=== PATIENT | male | born 1990 | race Caucasian/White ===

== ENCOUNTER 2024-02-19 13:47 | Outpatient (AMB) | payer OTHER, SELFPAY ==
--- NOTE | 2024-02-19 13:50 | MHC.PC.OV ---
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 Intake Note: New patient visit Insurance Specialist Required: No Allergies No Known Allergies Allergy (Verified 02/19/24 13:56) Tobacco use date assessed: 02/19/24 Dental Screening Dental Screen Date: 02/19/24 Did you have a dental visit in the last 12 months?: No Did you have a dental problem in the last 6 months where you did not have access to dental care?: No Was dental information given to patient?: Yes HPI HPI Comments History of Present Illness Details This is a 33-year-old male with a past medical history of depression with anxiety, ear infections, avoidant restrictive food intake disorder and obesity presenting to establish care and have a physical exam. Patient says it has been many years since he had a PCP. He sees a therapist for anxiety, depression and his food intake disorder. He is doing better. He got a dog. He has recently become more physically active and is trying to eat healthier. This has improved his mental health significantly. He plans to continue therapy, but he may switch providers. He will schedule eye and dental exams. He does not know the date of his last tetanus immunization. He suspects it is more than 10 years ago. It is administered today. Annual influenza vaccine was also recommended. ROS: Constitutional: No unexplained weight loss, fever, chills, fatigue or night sweats. Eyes: No vision changes, blurry vision, double vision, eye pain, eye redness, eye discharge. ENT: No hearing loss, sneezing, congestion, runny nose or sore throat. Respiratory: No shortness of breath, cough or sputum production. Cardiovascular: No chest pain, chest pressure or chest discomfort. No palpitations or pedal edema. Gastrointestinal: No anorexia, nausea, vomiting or diarrhea. No abdominal pain or blood in stool. Genitourinary: No dysuria, hematuria, urinary frequency. Denies testicular masses, swelling or pain. Neurologic: No headache, dizziness, syncope, unilateral weakness, ataxia, numbness or tingling in the extremities. Musculoskeletal: No joint swelling, redness or decreased range of motion. Hematologic/Lymphatics: No bleeding or bruising. No painful lymph nodes. Skin: No rash Endocrine: No cold or heat intolerance. No polyuria or polydipsia. Psychiatric: No SI/HI. Physical exam: Constitutional: Alert, in no distress. Head: Normocephalic. Eyes: Pupils are equal, round and reactive to light. Extraocular muscles intact. Ear, Nose and Throat: Canals clear. TMs normal. Normal nasal mucosa. No nasal discharge. No oral lesions. Neck: Supple, Full range of motion. No lymphadenopathy. No palpable thyroid masses. Respiratory: Clear to auscultation. Cardiovascular: S1 S2 regular. No murmurs. Gastrointestinal: Abdomen soft, non-tender, non-distended. Normal bowel sounds. No palpable masses. Genitourinary: Patient declined exam. Neurologic: No focal neurological deficits. Symmetric patellar reflexes. Moves all extremities spontaneously. Sensation intact bilaterally. Skin: No rashes or lesions. Musculoskeletal: No gross deformities. Normal range of motion. Extremities: Warm and well perfused. No clubbing, cyanosis or edema. 3+ peripheral pulses bilaterally. Psychiatric: Normal mood and affect [facility] Medical History (Updated 02/19/24 @ 14:27 by SAMARA De La Cruz) Avoidant/restrictive food intake disorder Depression with anxiety Ear infection Surgical History (Updated 02/19/24 @ 14:28 by SAMARA De La Cruz) History of appendectomy Family History (Updated 02/19/24 @ 14:31 by SAMARA De La Cruz) Paternal Grandmother Colon cancer Paternal Uncle Lung cancer Maternal Grandfather Coronary artery disease Mother Alcohol abuse Social History Housing: House Patient Tobacco Use Status: Former Tobacco user Cigarette Packs Per Day: 1.5 Years Smoked: 8 e-Cigarette/Vaping Use: Former Use Second Hand Smoke Exposure: No service: No Current occupational status: employed 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 1. Little interest or pleasure in doing things: several days 2. Feeling down, depressed, or hopeless: several days 3. Trouble falling or staying asleep, or sleeping too much: several days 4. Feeling tired or having little energy: several days 5. Poor appetite or overeating: nearly every day 6. Feeling bad about yourself - or that you are a failure or have let yourself or your family down: not at all 7. Trouble concentrating on things, such as reading the newspaper or watching television: several days 8. Moving or speaking so slowly that other people could have noticed. Or the opposite - being so fidgety or restless that you have been moving around a lot more than usual: several days 9. Thoughts that you would be better off or of hurting yourself in some way: not at all Total score: 9 Depression Screening Interpretation: Positive Depression Screening Follow-up: Existing condition and In treatment Depression Screening Done: Yes 33356 - PHQ-9 Billing: Yes Source: Developed by Drs. Kevan Serra, Shania Robertson, Cirilo Mitchell and colleagues, with an educational mack from [employer]. Thrive Questionnaire Date Thrive assessed: 02/19/24 I am a: Patient What is your living situation today?: I have a steady place to live Within the past 12 months, did the food you bought not last and you didn't have the money to get more?: Never true Within the past 12 months, did you worry whether your food would run out before you got money to buy more?: Never true Do you have trouble paying for medicines?: No Do you have trouble getting transportation to medical appointments?: No Do you have trouble paying your heating and electricity bill?: No Do you have trouble taking care of your child, family member or friend?: No Do you have trouble with day-to-day activities such as bathing, preparing meals, shopping, managing finances, etc.?: No Are you currently unemployed and looking for a job?: No Are you interested in more education?: No Please select the resources that you would like help with: None Currently or been in a relationship where the following occur: No concerns reported THRIVE Score: 0 AUDIT C Alcohol Use Questionnaire (AUDIT-C) 1. How often do you have a drink containing alcohol?: 2-4 times a month 2. How many drinks containing alcohol do you have on a typical day when you are drinking?: 3 or 4 3. How often do you have six or more drinks on one occasion?: Weekly Total Score: 6 GUANACO-7 AMB Questionnaire GUANACO-7 Date GUANACO - 7 assessed: 02/19/24 Feeling nervous, anxious, or on edge: 1 = Several days Not being able to stop or control worryin = Several days Worrying too much about different things: 1 = Several days Trouble relaxin = Several days Being so restless that it is hard to sit still: 1 = Several days Becoming easily annoyed or irritable: 1 = Several days Feeling afraid as if something awful might happen: 1 = Several days Total GUANACO-7 score (0-4 normal; 5-9 mild; 10-14 moderate; 15-21 severe): 7 Source: Developed by Drs. Kevan Serra, Shania Robertson, Cirilo Mitchell and colleagues, with an educational mack from [employer]. GUANACO-7 Assessment Billing GUANACO-7 Assessment Tool: GUANACO-7 Assessment 64638 Physical exam (Primary Care) Vital Signs: Last Vital Signs Temp 99 F 02/19/24 13:59 Pulse 94 02/19/24 13:59 Resp 16 02/19/24 13:59 BP 124/80 02/19/24 13:59 Pulse Ox 95 02/19/24 13:59 Oxygen Delivery Method Room Air 02/19/24 13:59 BMI result Body Mass Index 36.9 Tobacco/Smoking Status: Tobacco use Status Tobacco use date assessed 02/19/24 02/19/24 14:03 Patient Tobacco Use Status Former Tobacco user 02/19/24 14:03 e-Cigarette/Vaping Use Former Use 02/19/24 14:03 PHQ-9: PHQ-9 Score PHQ-9: Total score 9 02/19/24 16:30 Depression Screening Interpretation: Positive Depression Screening Follow-up: Existing condition and In treatment Thrive Assessment: Date of Thrive Assessment Date Thrive assessed 02/19/24 02/19/24 16:30 Currently or been in a relationship where the following occur: No concerns reported Assessment and Plan Assessment & Plan (1) Routine physical examination: Code(s): Z00.00 - Encounter for general adult medical examination without abnormal findings Plan Patient is seen today for a routine physical. As part of this visit we reviewed the following issues, which are considered and essential part of preventative health in this age group: - Testicular cancer screening, which includes self exam teaching - Blood pressure screening annually - Cholesterol screening - Nutritional and exercise counseling - Counseling of injury prevention including fire prevention, smoke alarms and seat belt usage - Prevention of and/or testing for infectious diseases - declined screening tests - Education about skin cancer - Recommendations about immunizations - Recommendation of an eye exam - Screening for substance abuse - Genetic cancer risk screening He will return for fasting labs. Follow up in 1 year for CPE. Orders: Orders Lipid Panel 02/19/24 Z00.00 - Encounter for general adult medical examination without abnormal findings, Z13.6 - Encounter for screening for cardiovascular disorders TDaP Immunization 02/19/24 Z23 - Encounter for immunization Comprehensive Met. Panel 02/19/24 Z00.00 - Encounter for general adult medical examination without abnormal findings, Z13.6 - Encounter for screening for cardiovascular disorders TSH reflex Free T4 02/19/24 Z00.00 - Encounter for general adult medical examination without abnormal findings, Z13.6 - Encounter for screening for cardiovascular disorders Complete Blood Count Auto Diff 02/19/24 Z00.00 - Encounter for general adult medical examination without abnormal findings, Z13.6 - Encounter for screening for cardiovascular disorders Medications: New Boostrix Tdap (diphth,pertus(acell),tetanus) 0.5 mL IM ONCE 0.5 mL 0RF NS Z23 - Encounter for immunization Coding Level of Care Code New Pt Prev Care 18-39yr(17883 Diagnoses Routine physical examination Z00.00 Additional Codes GUANACO-7 Assessment Billing - GUANACO-7 Assessment Tool: GUANACO-7 Assessment 18640 ([id number])
[2024-02-19 13:59] VITALS: BP 124/80; PULSE 94; RESP 16; TEMP 37.2; O2SAT 95; BMI 36.9
== END 2024-02-19 14:50 | disposition home or self-care (01) ==
PROVIDERS: PCP Physician Assistant Medical; Visit Provider Physician Assistant Medical
DX: Z00.00 Encounter for general adult medical examination without abnormal findings (principal)

== ENCOUNTER → 2024-02-19 13:47 | Outpatient (BNVA) | payer OTHER, SELFPAY | PROVIDERS: PCP Physician Assistant Medical; Visit Provider Physician Assistant Medical | DX: Z00.00 Encounter for general adult medical examination without abnormal findings (principal) | CPT/HCPCS: 96127 ==

== ENCOUNTER 2024-02-23 08:18 | Outpatient (REF) | payer OTHER, SELFPAY ==
[2024-02-23 11:20] LABS: MANUAL DIFF FLAG NO
[2024-02-23 11:29] LABS: Basophils Percent Auto 0.6 % (0-2); Eosinophils Absolute Auto 0.1 X10*3/uL (0.0-0.4); Eosinophils Percent Auto 1.9 % (0-4); Hemoglobin 14.9 g/dl (14.0-18.0); Imm Gran Abs Auto 0.02 X10*3/uL (0.00-0.03); Imm Gran Pct Auto 0.3 % (0.0-0.4); Lymphocytes Absolute Auto 1.8 X10*3/uL (1.2-4.9); Lymphocytes Percent Auto 27.8 % (20-40); Mean Corpuscular HGB Conc 33.1 g/dl (31.0-36.0); Mean Corpuscular Hemoglobin 31.2 pg (27.0-33.0); Mean Corpuscular Volume 94.3 fL (80.0-98.0); Mean Platelet Volume 12.7 fL (9.4-12.4); Monocytes Absolute Auto 0.6 X10*3/uL (0.1-1.2); Neutrophils Absolute Auto 3.8 x10*3/uL (2.0-8.3); Neutrophils Percent Auto 60.4 % (45-73); Platelet Count 215 X10*3/uL (160-400); Red Blood Count 4.77 X10*6/uL (4.60-5.80); Red Cell Distribution Width 12.7 % (11.0-16.0); White Blood Count 6.3 X10*3/uL (4.8-10.8)
[2024-02-23 11:50] LABS: Alanine Aminotransferase 40 U/L (0-40); Albumin Level 4.3 g/dL (3.5-5.0); Alkaline Phosphatase 68 U/L (39-117); Anion Gap 11 (12-20); Aspartate Amino Transferase 22 U/L (5-37); Bilirubin Total 0.3 mg/dL (0.0-1.0); Blood Urea Nitrogen 12 mg/dL (9-16); Calcium 9.1 mg/dL (8.4-10.2); Carbon Dioxide 26 mmol/L (22-29); Chloride 107 mmol/L (96-108); Cholesterol 139 mg/dL (<200); Estimated Glomerular Filt Rate > 60; Glucose Random 108 mg/dL (60-115); HDL Cholesterol 54 mg/dL (>40); LDL Cholesterol Calculated 76 mg/dL (<100); Sodium 140 mmol/L (135-145); Total Protein 7.1 g/dL (6.5-8.0); Triglycerides 47 mg/dL (<150)
[2024-02-23 12:05] LABS: TSH reflex Free T4 0.27 uIU/mL (0.32-4.0)
[2024-02-23 13:13] LABS: Free T4 (Free Thyroxine) 0.98 ng/dL (0.71-1.85)
== END 2024-02-23 08:19 | disposition home or self-care (01) ==
LOC: HO.WFDLDS 08:18
PROVIDERS: Visit Provider Physician Assistant Medical
DX: Z00.00 Encounter for general adult medical examination without abnormal findings (principal); Z13.6 Encounter for screening for cardiovascular disorders
CPT/HCPCS: 36415; 80053; 80061; 84439; 84443; 85025

== ENCOUNTER 2024-03-23 07:58 | Outpatient (REF) | payer OTHER, SELFPAY ==
[2024-03-23 12:11] LABS: TSH reflex Free T4 0.35 uIU/mL (0.32-4.0)
== END 2024-03-23 07:59 | disposition home or self-care (01) ==
LOC: HO.WFDLDS 07:58
PROVIDERS: Visit Provider Physician Assistant Medical
DX: R79.89 Other specified abnormal findings of blood chemistry (principal)
CPT/HCPCS: 36415; 84443

== ENCOUNTER 2025-02-24 08:27 | Outpatient (AMB) | payer OTHER, SELFPAY ==
--- NOTE | 2025-02-24 08:30 | MHC.PC.OV ---
Vital Signs 02/24/25 08:35 Height 5 ft 10 in Weight 264 lb BMI 37.9 BP 100/62 Blood Pressure Location Rt brachial Position Sitting Respiration 14 Pulse 72 Pulse Source Pulse Oximeter Temp 98.4 F Temp Source Temporal Artery Scan Pulse Oximetry (%) 97 Oxygen Delivery Method Room Air Intake Visit Reasons: cpe Intake Note: Enrique presents in the office for his annual physical. Allergies No Known Allergies Allergy (Verified 02/24/25 08:33) Medication List - Last Reconciled 02/24/25 by SAMARA De La Cruz desvenlafaxine succinate ER 25 mg PO DAILY simethicone (Gas Relief (simethicone)) 125 mg PO BID-QID PRN Tobacco use date assessed: 02/24/25 Dental Screening Dental Screen Date: 02/24/25 Did you have a dental visit in the last 12 months?: No Did you have a dental problem in the last 6 months where you did not have access to dental care?: No Was dental information given to patient?: Patient declined HPI HPI Comments History of Present Illness Details This is a 34-year-old male with a past medical history of depression with anxiety presenting for a physical exam. Anxiety and depression Jack Burns, MAGNETIC OBSERVER prescribes Pristiq. He started taking this in November. It's going well. Stopped daily MJ use and noticed decreased anxiety and picky eating habits resolved. He has gained weight so he is exploring a balance between his caloric intake and activity. Walks dog before and after work and hikes on the weekend. Patient wanted to know if having bowel movements 3 to 4 times a day is normal. Denies diarrhea, blood in stools, straining, abdominal pain or unexplained weight loss. He says this has been the case for a very long time. Sometimes when he goes he still feels like he has to go and will have another bowel movement several minutes later. He also endorses flatulence at night. He notices increased symptoms when he has ice cream. ROS: Constitutional: No unexplained weight loss, fever, chills, fatigue or night sweats. Eyes: No vision changes, blurry vision, double vision, eye pain, eye redness, eye discharge. ENT: No hearing loss, sneezing, congestion, runny nose or sore throat. Respiratory: No shortness of breath, cough or sputum production. Cardiovascular: No chest pain, chest pressure or chest discomfort. No palpitations or pedal edema. Gastrointestinal: No anorexia, nausea, vomiting or diarrhea. No abdominal pain or blood in stool. Genitourinary: No dysuria, hematuria, urinary frequency. Denies testicular masses, swelling or pain. Neurologic: No headache, dizziness, syncope, unilateral weakness, ataxia, numbness or tingling in the extremities. Musculoskeletal: No joint swelling, redness or decreased range of motion. Hematologic/Lymphatics: No bleeding or bruising. No painful lymph nodes. Skin: No rash Endocrine: No cold or heat intolerance. No polyuria or polydipsia. Psychiatric: No SI/HI. Physical exam: Constitutional: Alert, in no distress. Head: Normocephalic. Eyes: Pupils are equal, round and reactive to light. Extraocular muscles intact. Ear, Nose and Throat: Canals clear. TMs normal. Normal nasal mucosa. No nasal discharge. No oral lesions. Neck: Supple, Full range of motion. No lymphadenopathy. No palpable thyroid masses. Respiratory: Clear to auscultation. Cardiovascular: S1 S2 regular. No murmurs. Gastrointestinal: Abdomen soft, non-tender, non-distended. Normal bowel sounds. No palpable masses. No rebound or guarding. Genitourinary: Patient declined exam. Neurologic: No focal neurological deficits. Symmetric patellar reflexes. Moves all extremities spontaneously. Sensation intact bilaterally. Skin: No rashes Musculoskeletal: No gross deformities. Normal range of motion. Extremities: Warm and well perfused. No clubbing, cyanosis or edema. Intact peripheral pulses bilaterally. Psychiatric: Normal mood and affect [facility] Medical History (Updated 02/24/25 @ 13:49 by SAMARA De La Cruz) Flatulence Screening for cardiovascular condition Routine physical examination Obesity Low TSH level Avoidant/restrictive food intake disorder Depression with anxiety Ear infection Surgical History (Updated 02/19/24 @ 14:28 by SAMARA De La Cruz) History of appendectomy Family History Paternal Grandmother Colon cancer Paternal Uncle Lung cancer Maternal Grandfather Coronary artery disease Mother Alcohol abuse Social History (Updated 02/24/25 @ 08:35 by Jazmín Ocampo CMA) Housing: House Alcohol intake: current Patient Tobacco Use Status: Former Tobacco user Cigarette Packs Per Day: 1.5 Years Smoked: 8 e-Cigarette/Vaping Use: Former Use Second Hand Smoke Exposure: No Substance Use Type: Marijuana service: No Current occupational status: employed 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 1. Little interest or pleasure in doing things: not at all 2. Feeling down, depressed, or hopeless: not at all 3. Trouble falling or staying asleep, or sleeping too much: several days 4. Feeling tired or having little energy: several days 5. Poor appetite or overeating: several days 6. Feeling bad about yourself - or that you are a failure or have let yourself or your family down: not at all 7. Trouble concentrating on things, such as reading the newspaper or watching television: several days 8. Moving or speaking so slowly that other people could have noticed. Or the opposite - being so fidgety or restless that you have been moving around a lot more than usual: not at all 9. Thoughts that you would be better off or of hurting yourself in some way: not at all Total score: 4 Depression Screening Interpretation: Positive Depression Screening Follow-up: In treatment Depression Screening Done: Yes 08128 - PHQ-9 Billing: Yes Source: Developed by Drs. Kevan Serra, Shania Robertson, Cirilo Mitchell and colleagues, with an educational mack from [employer]. Thrive Questionnaire Date Thrive assessed: 02/24/25 I am a: Patient What is your living situation today?: I have a steady place to live Within the past 12 months, did the food you bought not last and you didn't have the money to get more?: Never true Within the past 12 months, did you worry whether your food would run out before you got money to buy more?: Never true Do you have trouble paying for medicines?: No Do you have trouble getting transportation to medical appointments?: No Do you have trouble paying your heating and electricity bill?: No Do you have trouble taking care of your child, family member or friend?: No Do you have trouble with day-to-day activities such as bathing, preparing meals, shopping, managing finances, etc.?: No Are you currently unemployed and looking for a job?: No Are you interested in more education?: No Please select the resources that you would like help with: None Currently or been in a relationship where the following occur: No concerns reported THRIVE Score: 0 AUDIT C Alcohol Use Questionnaire (AUDIT-C) 1. How often do you have a drink containing alcohol?: 2-3 times a week 2. How many drinks containing alcohol do you have on a typical day when you are drinking?: 3 or 4 3. How often do you have six or more drinks on one occasion?: Monthly Total Score: 6 GUANACO-7 AMB Questionnaire GUANACO-7 Date GUANACO - 7 assessed: 02/24/25 Feeling nervous, anxious, or on edge: 0 = Not at all Not being able to stop or control worryin = Not at all Worrying too much about different things: 0 = Not at all Trouble relaxin = More than half the days Being so restless that it is hard to sit still: 0 = Not at all Becoming easily annoyed or irritable: 1 = Several days Feeling afraid as if something awful might happen: 0 = Not at all Total GUANACO-7 score (0-4 normal; 5-9 mild; 10-14 moderate; 15-21 severe): 3 Source: Developed by Drs. Kevan Serra, Shania Robertson, Cirilo Mitchell and colleagues, with an educational mack from [employer]. GUANACO-7 Assessment Billing GUANACO-7 Assessment Tool: GUANACO-7 Assessment 11950 Physical exam (Primary Care) Vital Signs: Last Vital Signs Temp 98.4 F 02/24/25 08:35 Pulse 72 02/24/25 08:35 Resp 14 02/24/25 08:35 BP 100/62 02/24/25 08:35 Pulse Ox 97 02/24/25 08:35 Oxygen Delivery Method Room Air 02/24/25 08:35 BMI result Body Mass Index 37.9 Tobacco/Smoking Status: Tobacco use Status Tobacco use date assessed 02/24/25 02/24/25 08:38 Patient Tobacco Use Status Former Tobacco user 02/24/25 08:38 e-Cigarette/Vaping Use Former Use 02/24/25 08:38 PHQ-9: PHQ-9 Score PHQ-9: Total score 4 02/24/25 09:22 Depression Screening Interpretation: Positive Depression Screening Follow-up: In treatment Thrive Assessment: Date of Thrive Assessment Date Thrive assessed 02/24/25 02/24/25 08:38 Currently or been in a relationship where the following occur: No concerns reported Office Procedures Flu Questionnaire Does the patient have a severe egg allergy?: No Does the patient have severe life threatening allergies?: No Does the patient have a fever or illness today?: No Has the patient ever had Guillain-Bristol Syndrome?: No Has the patient ever had any past reaction to a flu shot?: No Immunizations Fluarix [id number] (PF) 45 mcg (15 mcg x 3)/0.5 mL IM syringe Performing Provider: SAMARA De La Cruz [place] [facility] [place] Administered by: Jazmín Ocampo CMA on 02/24/25 09:22 Dose Route Admin Location Dispensed Lot Number Expiration Date [facility] [employer] 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 0.5 mL IM Left Deltoid 0.5 mL [id number] 11/29/25 02083-828-90 [employer] VIS Given Date VIS Provided VIS Publication Date 02/24/25 Single Vaccine 24 Eligibility Eligibility Date Funding Source Not [facility] Eligible 02/24/25 Private Coding Level of Care Code Est Pt Prev Care 18-39y(59543) Diagnoses Routine physical examination Z00.00 Depression with anxiety F41.8 Flatulence R14.3 Additional Codes GUANACO-7 Assessment Billing - GUANACO-7 Assessment Tool: GUANACO-7 Assessment 62484 ([id number]) PHQ-9 - 99927 - PHQ-9 Billing: Yes ([id number]) Assessment & Plan Assessment & Plan (1) Routine physical examination: Code(s): Z00.00 - Encounter for general adult medical examination without abnormal findings Category: Medical Plan: Patient is seen today for a routine physical. As part of this visit we reviewed the following issues, which are considered and essential part of preventative health in this age group: - Screening for colon cancer - Blood pressure screening - Cholesterol screening - Nutritional and exercise counseling - Counseling of injury prevention including fire prevention, smoke alarms and seat belt usage - Screening for depression - Prevention of and/or testing for infectious diseases - declines screenings - Education about skin cancer - Recommendations about immunizations - Recommendation of an eye exam - Screening for substance abuse (2) Depression with anxiety: Code(s): F41.8 - Other specified anxiety disorders Category: Medical Plan: Previously seen by a therapist. He is now following with psychiatry and doing well on Pristiq. Improved anxiety since stopping marijuana. (3) Flatulence: Code(s): R14.3 - Flatulence Category: Medical Plan: Recommended dairy free trial since he notices increased symptoms with rich dairy like ice cream. Patient will message me after 2 week trial. He can also try a daily fiber supplement like Benefiber and low FODMAP diet. Sent simethicone to use as needed. Plan Schedule physical in 1 year. Orders: Orders Comprehensive Met. Panel Today R79.89 - Other specified abnormal findings of blood chemistry, Z00.00 - Encounter for general adult medical examination without abnormal findings, Z13.6 - Encounter for screening for cardiovascular disorders Lipid Panel Today E78.5 - Hyperlipidemia, unspecified, R79.89 - Other specified abnormal findings of blood chemistry, Z00.00 - Encounter for general adult medical examination without abnormal findings, Z13.6 - Encounter for screening for cardiovascular disorders Complete Blood Count no Diff Today R79.89 - Other specified abnormal findings of blood chemistry, Z00.00 - Encounter for general adult medical examination without abnormal findings, Z13.6 - Encounter for screening for cardiovascular disorders Influenza [id number] Immunization Today Z23 - Encounter for immunization TSH reflex Free T4 Today R79.89 - Other specified abnormal findings of blood chemistry, Z00.00 - Encounter for general adult medical examination without abnormal findings, Z13.6 - Encounter for screening for cardiovascular disorders 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
[2025-02-24 08:35] VITALS: BP 100/62; PULSE 72; RESP 14; TEMP 36.9; O2SAT 97; BMI 37.9
== END 2025-02-24 10:21 | disposition home or self-care (01) ==
LOC: HO.HMCFM 08:28
PROVIDERS: PCP Physician Assistant Medical; Visit Provider Physician Assistant Medical
DX: Z00.00 Encounter for general adult medical examination without abnormal findings (principal); F41.8 Other specified anxiety disorders; R14.3 Flatulence; Z23 Encounter for immunization

== ENCOUNTER → 2025-02-24 08:27 | Outpatient (BNVA) | payer OTHER, SELFPAY | PROVIDERS: PCP Physician Assistant Medical; Visit Provider Physician Assistant Medical | DX: Z00.00 Encounter for general adult medical examination without abnormal findings (principal); Z23 Encounter for immunization; F41.8 Other specified anxiety disorders; R14.3 Flatulence; Z13.31 Encounter for screening for depression; Z13.39 Encounter for screening examination for other mental health and behavioral disorders | CPT/HCPCS: 90471; 90656; 96127 ==

== ENCOUNTER 2025-02-28 07:57 | Outpatient (REF) | payer OTHER, SELFPAY ==
[2025-02-28 11:33] LABS: Hematocrit 44.3 % (42.0-52.0); Hemoglobin 14.9 g/dl (14.0-18.0); Mean Corpuscular HGB Conc 33.6 g/dl (31.0-36.0); Mean Corpuscular Hemoglobin 30.7 pg (27.0-33.0); Mean Corpuscular Volume 91.3 fL (80.0-98.0); NRBC Abs Auto 0.000 X10*3/uL (0.0-0.012); NRBC Pct Auto 0.0 /100WBC (0.0-0.2); Platelet Count 223 X10*3/uL (160-400); Red Blood Count 4.85 X10*6/uL (4.60-5.80); White Blood Count 5.6 X10*3/uL (4.8-10.8)
[2025-02-28 11:57] LABS: Alanine Aminotransferase 31 U/L (0-40); Albumin Level 4.6 g/dL (3.5-5.0); Alkaline Phosphatase 69 U/L (39-117); Anion Gap 11 (12-20); Aspartate Amino Transferase 25 U/L (5-37); Blood Urea Nitrogen 18 mg/dL (9-16); Calcium 9.1 mg/dL (8.4-10.2); Carbon Dioxide 24 mmol/L (22-29); Chloride 110 mmol/L (96-108); Cholesterol 168 mg/dL (<200); Estimated Glomerular Filt Rate > 60; HDL Cholesterol 53 mg/dL (>40); Potassium 4.0 mmol/L (3.3-5.1); Sodium 141 mmol/L (135-145); Total Protein 7.1 g/dL (6.5-8.0); Triglycerides 84 mg/dL (<150)
== END 2025-02-28 07:58 | disposition home or self-care (01) ==
LOC: HO.WFDLDS 07:57
PROVIDERS: Visit Provider Physician Assistant Medical
DX: Z00.00 Encounter for general adult medical examination without abnormal findings (principal); Z13.6 Encounter for screening for cardiovascular disorders; R79.89 Other specified abnormal findings of blood chemistry; E78.5 Hyperlipidemia, unspecified
CPT/HCPCS: 36415; 80053; 80061; 84443; 85027

== ENCOUNTER 2025-05-04 08:28 | Outpatient (AMB) | payer OTHER, SELFPAY ==
[2025-05-04 08:42] VITALS: BMI 38.4
--- NOTE | 2025-05-04 08:42 | MHC.AMNUTRGE ---
VS Expanded 05/04/25 08:42 05/04/25 12:44 Height 5 ft 10 in 5 ft 10 in Weight 268 lb 268 lb BMI 38.4 38.4 Intake Visit Reasons: Obesity, unspecified Allergies No Known Allergies Allergy (Verified 02/24/25 08:33) Nutrition Presentation Details: Pt presents for MNT for obesity Pt reports having irregular eating patterns, often skips meals with increased appetite in the evening. Pt is looking forward to meal planning and improvement in meal choices and weight Breakfast shake 2 eggs milk2%, carnation breakfast mix peanut butter powder and banana (500 calories lunch: skips or pizza dinner empty calorie foods walking 30 minutes twice a day with physical activity Food frequency fish: not eating - fruits: 2/d vegetables: dairy: 2-3 /d Alcohol: On weekends 3+ BS Monitoring Most Recent Diabetes Results: Cholesterol, (<200) 168 mg/dL 02/28/25 HDL Cholesterol, (>40) 53 mg/dL 02/28/25 Triglycerides, (<150) 84 mg/dL 02/28/25 Creatinine, (0.5-1.4) 1.05 mg/dL 02/28/25 BUN, (9-16) 18 mg/dL H 02/28/25 Sodium, (135-145) 141 mmol/L 02/28/25 Potassium, (3.3-5.1) 4.0 mmol/L 02/28/25 Chloride, (96-108) 110 mmol/L H 02/28/25 Carbon Dioxide, (22-29) 24 mmol/L 02/28/25 Calcium, (8.4-10.2) 9.1 mg/dL 02/28/25 AST, (5-37) 25 U/L 02/28/25 ALT, (0-40) 31 U/L 02/28/25 Total Protein, (6.5-8.0) 7.1 g/dL 02/28/25 Albumin, (3.5-5.0) 4.6 g/dL 02/28/25 [id number]-Kr.Jeor Equation Height: 5 ft 10 in Weight: 268 lb Resting Metabolic Rate: 2168.30 Calculated Activity Level: Sedentary Calories Needed to Maintain Weight: 2601.96 Diagnosis Nutrition problem #1: overweight/obesity As related to (etiology) #1: diagnosis As evidenced by (sign/symptom) #1: high BMI PFSH Medical History (Updated 02/24/25 @ 13:49 by SAMARA De La Cruz) Flatulence Screening for cardiovascular condition Routine physical examination Obesity Low TSH level Avoidant/restrictive food intake disorder Depression with anxiety Ear infection Surgical History (Updated 02/19/24 @ 14:28 by SAMARA De La Cruz) History of appendectomy Family History Paternal Grandmother Colon cancer Paternal Uncle Lung cancer Maternal Grandfather Coronary artery disease Mother Alcohol abuse Social History (Updated 02/24/25 @ 08:35 by Jazmín Ocampo CMA) Housing: House Alcohol intake: current Patient Tobacco Use Status: Former Tobacco user Cigarette Packs Per Day: 1.5 Years Smoked: 8 e-Cigarette/Vaping Use: Former Use Second Hand Smoke Exposure: No Substance Use Type: Marijuana service: No Current occupational status: employed Current occupation: [employer] for [employer] Current occupational exposures/hazards: No Cognitive needs: No Hearing needs: No Vision needs: Yes (contacts) Assessment & Plan Assessment & Plan (1) Obesity: Code(s): E66.9 - Obesity, unspecified Category: Medical Plan: current wt: 121 kg ( 05/26 ) est kcal needs as per MSJ: 2600 est protein needs as per 1 g/kg BW: 120 est fluid needs as per 30 ml/kg BW: 3600 Recommended fiber > 12 g /day and gradually increase up to 25-28 g /day or as tolerated Nutrition topics discussed : Reviewed (R), Pt verbalized understanding (V) , not applicable (N/A) R, : Healthy Plate Method Concept: R, V, N/A: Carbohydrates: food sources of carbohydrates, relationship of carbohydrates to blood glucose, fatty liver GI health. Recommended total amount of carbohydrates per meals and snack. Differences between simple carbohydrates and complex carbohydrates R, : Lean protein foods including vegan , vegetarian sources of protein. Benefits of protein (including but not limited to healing, nutritional value , benefits in weight loss, glucose control R, V, N/A: Fats : Source of fats, benefits of fats. Difference between saturated and unsaturated fats. Saturated fats and its contribution to inflammation R, : Fiber: food sources and role of fiber in the diet (including but not limited to its role as a prebiotic, benefits in constipation, role in IBS , role in glucose control and cholesterol level) R, : Hydration: role of hydration and prevention of dehydration or over hydration. Foods and water content. R, V, N/A: Vitamins and Minerals in foods and supplements R, V, N/A: Interpreting food labels, including serving size, macronutrients, vitamins, minerals, allergens, ingredient list , % daily value Patient Instructions: Have a meal replacement once a day Choose beverages with no sugar added Coding Level of Care Code Nutr Indiv Intake (25684) Diagnoses Obesity E66.9 Time Spent (min) 30
[2025-05-04 12:44] VITALS: BMI 38.4
== END 2025-05-04 09:21 | disposition home or self-care (01) ==
LOC: HO.ENCR 08:29
PROVIDERS: PCP Physician Assistant Medical; Visit Provider Dietitian, Registered
DX: E66.9 Obesity, unspecified (principal)

== ENCOUNTER → 2025-05-04 08:28 | Outpatient (BNVA) | payer OTHER, SELFPAY | PROVIDERS: PCP Physician Assistant Medical; Visit Provider Dietitian, Registered | DX: E66.9 Obesity, unspecified (principal); Z68.38 Body mass index [BMI] 38.0-38.9, adult; Z71.3 Dietary counseling and surveillance | CPT/HCPCS: 97802 ==